=== PATIENT | female | born 1955 | race Caucasian/White ===

== ENCOUNTER → 2019-02-27 | Outpatient (CLI) | payer OTHER ==
[~2019-02-27] MED LIST: CYMBALTA60 MG PO; DAZIDOX10 MG PO; FOSAMAX 35 MG35 MG PO; NORCO 5-325 TA1 EACH PO; OXYCONTIN CR 1010 M1 PO; OXYCONTIN CR 2020 MG PO; OXYCONTIN60 MG PO; SEROQUEL 50 MG50 M1 PO; SULFASALAZINE500 M4 PO; SYMBALTA PO; SYMBICORT160 MCG/4.; VALIUM5 MG PO; ZOLPIDEM TARTRA10 MG PO; [UNRECOGNIZED DRUG - OTHER] PO
== END ==
LOC: CAT 14:53
DX: J43.2 Centrilobular emphysema (principal); J43.1 Panlobular emphysema

== ENCOUNTER → 2019-08-22 | Outpatient (CLI) | payer OTHER ==
--- NOTE | 2019-08-24 07:13 | SLE ---
[facility] [place] [address] POLYSOMNOGRAPHY STUDY Name: ADA MARTE Room #: REG [facility]#: [id number] Admission: 08/22/19 Attend Phys: Damon Chambers MD Discharge: Date of : 55 Report #: [id number] THIS REPORT FOR: //name// CC: Damon Caban MD Oliverio Box DATE OF SERVICE: 08/22/2019 SLEEP STUDY ATTENDING PHYSICIAN: Dr. Samuel Caban The patient is a 64-year-old who weighs 138 pounds with a BMI of 22.3. The patient's Hanover score was 9. The patient underwent a diagnostic sleep study performed at [facility]. During the night study, the patient spent 437 minutes in bed and slept for 306 minutes with a sleep efficiency of 70%. Sleep latency was 16.2 minutes with a REM latency of 67 minutes. Sleep architecture showed normal stage 1 sleep, increased stage 2 sleep, absent slow wave and normal REM sleep. During the night of the study, the patient had 2 central apneas, no mixed or obstructive apneas and 8 hypopneas. The patient's AHI for the entire night was 2 per hour. The patient's REM AHI was 9.6 per hour. Supine AHI was 2 per hour. EKG monitoring revealed average heart rate of 64 beats per minute. Frequent PVCs were observed. No clinically significant PLM seen. Nocturnal oximetry study revealed an average oxygen saturation of 91% with a lowest of 81%. A 22 minutes were spent in oxygen saturation of less than 89%. Due to low AHI, the patient did not meet the split night criteria for CPAP initiation. IMPRESSION: 1. No clinically significant sleep disordered breathing. The patient's AHI for the entire night was 2 per hour. Mild REM sleep related hypopneas seen. 2. Mild nocturnal hypoxia secondary to REM sleep related hypopneas. 3. No clinically significant periodic limb movements. RECOMMENDATIONS: [facility] [address] [place] [address] POLYSOMNOGRAPHY STUDY Name: ADA MARTE Room #: REG [facility]#: [id number] Admission: 08/22/19 Attend Phys: Damon Chambers MD Discharge: Date of : 55 Report #: [id number] 1. The patient did not meet the split night criteria for CPAP initiation. 2. Avoid [employer] depressants. <ELECTRONICALLY SIGNED> By: Damon Chambers MD 08/24/19 07 1949 02 Damon Chambers MD /nt
== END ==
LOC: SLEEPLAB 13:18
DX: G47.33 Obstructive sleep apnea (adult) (pediatric) (principal); R09.02 Hypoxemia